=== PATIENT | female | born 1930 | race Caucasian/White ===

== ENCOUNTER 2016-08-09 10:39 | Observation (INO) | payer OTHER, MEDICARE ==
[~2016-08-09] VITALS: Ht 162.6 cm; Wt 53.9 kg
[~2016-08-09 10:39] MED LIST: ALBU1AER9 INH; CALCTAB5 PO; MULT-506 PO
--- NOTE | 2016-08-09 11:45 | DIAGNOSTIC IMAGING REPORT ---
SINGLE VIEW CHEST CLINICAL HISTORY: Dyspnea. Productive cough. FINDINGS: An AP, portable, upright chest radiograph is compared to study dated 10/21/2014 and correlated with chest CT dated 10/29/2014. The examination is degraded by portable technique and patient rotation. The heart is top normal for projection. There is atherosclerotic calcification of the thoracic aorta. Enlargement of the central pulmonary vessels suggests pulmonary artery hypertension. There is biapical scarring and emphysema. Scarring and cystic change at the right lung base is similar to previous. There is no airspace consolidation typical for pneumonia or pleural effusion. No pneumothorax is seen. The skeletal structures are osteopenic. The bony thorax is grossly intact. IMPRESSION: Emphysema and chronic parenchymal changes as above. No acute cardiopulmonary abnormality is identified. Electronically signed by: Marc Rinaldi M.D. 08/09/2016 11:44 AM Dictated Date/Time: 08/09/2016 11:42 AM
[2016-08-09 11:55] LABS: HEMATOCRIT 41.5 % (37-47); MEAN CELL VOLUME 93.5 fL (80-100); MEAN CORPUSCULAR HEMOGLOBIN 31.8 pg (25-34); MEAN PLATELET VOLUME 10.3 fL (7.4-10.4); PLATELET COUNT 208 K/uL (130-400); RED BLOOD COUNT 4.44 M/uL (4.2-5.4); WHITE BLOOD COUNT 5.67 K/uL (4.8-10.8)
[2016-08-09 12:04] LABS: PARTIAL THROMBOPLASTIN RATIO 1.2; PROTHROMBIN TIME (PATIENT) 10.5 SECONDS (9.0-12.0)
[2016-08-09 12:13] LABS: BUN/CREATININE RATIO 21.5 (10-20); CALCIUM 9.9 mg/dl (8.5-10.1); CREATININE 1.1 mg/dl (0.60-1.20); POTASSIUM 4.5 mmol/L (3.5-5.1)
[2016-08-09 12:15] LABS: ALB/GLOB RATIO 0.8 (0.9-2)
[2016-08-09] MEDS ORDERED: ALBUT/IPRATROP 3MG/0.5MG NEB 3 ML VIAL INH STA (12:15)
[2016-08-09 12:18] LABS: BASO % 0.4 %; BASO ABS # 0.02 K/uL (0-0.2); COMPLETE YES; EOS % 5.6 %; LYMPH % 24.3 %; LYMPH ABS # 1.38 K/uL (1.2-3.4); MONO % 9.9 %; NEUT % 59.8 %
[2016-08-09] MEDS ORDERED: ASCO10003 PO (12:34)
[2016-08-09] MEDS ORDERED: IBUP1CAP9 PO (14:52)
[2016-08-09] MEDS ORDERED: ONDANSETRON INJ 2 MG/ML 2 ML VIAL IV PRN (15:15)
[2016-08-09] MEDS ORDERED: ACETAMINOPHEN 325 MG TAB PO PRN (15:15)
--- NOTE | 2016-08-09 15:56 | History and Physical ---
History & Physical Date of Service Aug 09, 2016. History & Physical ADDENDUM: This is an 85 year old female with PMH of CKD stage 3, osteoporosis, recurrent sinusitis, presents with worsening dyspnea on exertion; states that this began a few days ago; and the breathing is worse with activity - she states she gets short of breath going up stairs and doing her activities of daily living; states she was diagnosed with COPD - though she never smoked; states that her mother smoked when patient was a child and her has a smoking history. Patient presented here, and vitals and labwork looked okay; CXR was performed showing hyperinflated lungs; emphysematous changes. She is resting comfortably during examination. ER staff ambulated patient in the hallways and she become hypoxic in the upper 80s. VITALS: Last Vital Signs Documentation Date Time Temp Pulse Resp B/P Pulse Ox O2 Delivery O2 Flow Rate FiO2 08/09/16 14:59 70 16 147/85 95 Room Air 08/09/16 10:41 36.6 GEN: no acute distress, +thin HEENT: dry mucous membranes CVS: +S1, S2, RRR LUNGS: end expiratory wheezing diffusely, decreased breath sounds ABD: soft, NT/ND EXT: no swelling/edema Acute COPD exacerbation Possible Viral Bronchitis patient with presumed COPD should have PFTs as outpatient for now, continue nebulizers PO steroid taper started on [id number]-nydia monitor for hypoxia, may need two step prior to discharge very eager to go home; but agreeable to stay overnight
[2016-08-09] MEDS ORDERED: AZITHROMYCIN 250 MG TAB PO ONE (16:00)
[2016-08-09] MEDS ORDERED: IV FLUIDS COMPLETED PRN (16:00)
[2016-08-09 16:15] VITALS: BP 121/75; PULSE 73; TEMP 36.5; O2SAT 93; Ht 162.6 cm; Wt 53.9 kg
[2016-08-09 16:24] LABS: INFLUENZA A PCR Neg for Influ A (NEG); INFLUENZA B PCR Neg for Influ B (NEG)
--- NOTE | 2016-08-09 16:43 | History and Physical ---
History & Physical Date & Time of Service: Aug 09, 2016 at 15:06 Chief Complaint: Trouble Breathing Primary Care Physician: Nhan Montoya MD History of Present Illness Source: patient, clinic records This is an 85 year old female with PMH of COPD, GERD, and other problems listed below who presents to the ED with worsening KELLY. Patient states she was dx with COPD when she was treated for acute bronchitis in Feb 2016 but never had PFT' s. Prior to that she had an episode of bronchitis in Spring 2015 and reports having pneumonia twice prior to that. She states at baseline she has KELLY with walking uphill which worsened from baseline x past 3 days. She states usually she can tolerate the KELLY but in past few days had to stop and rest which resolves her dyspnea. She has been using her rescue inhaler twice per day which is more than usual. She reports chronic dry cough but for past 3 days has been producing sputum. She notes associated fatigue and rhinorrhea. Pt notes chronic sinus issues. but no current sinus pressure/ ELDRIDGE. Pt has chronic cramping in bilateral legs/ feet. Pt lives alone and is usually active with cooking/ cleaning/ gardening. She denies fever, chills, chest pain, palpitations, abdominal pain, N/V/D, urinary change, orthopnea, edema, weight gain, diffuse myalgias. Pt denies sick contact, recent hospitalization, travel, or surgery. She denies h/o cardiac disorder. She does not recall having echo or stress test in the past. In the ER patient was hypoxic to 88% on RA with ambulation. She will be admitted for further evaluation and treatment. Past Medical/Surgical History Medical Problems: (1) Arthritis Status: Chronic (2) CKD (chronic kidney disease), stage III Status: Chronic (3) COPD (chronic obstructive pulmonary disease) Status: Chronic (4) GERD (gastroesophageal reflux disease) Status: Chronic (5) Osteoporosis Status: Chronic (6) Raynauds syndrome Status: Chronic (7) Sjoegren syndrome Status: Chronic Surgical Problems: (1) H/O inguinal hernia repair Status: Chronic Family History Cancer FH: heart disease FHx: lung disease Social History Smoking Status: Never Smoker Alcohol Use: none Drug Use: none Housing status: lives alone Occupational Status: other Multi-Drug Resistant Organisms History of MDRO: No Allergies Coded Allergies: Lidocaine (Verified Allergy, Unknown, UNKNOWN, 08/09/16) Home Medications Scheduled Ascorbic Acid (Vitamin C), 1,000 MG PO DAILY Multivitamin (Multivitamin), 1 TAB PO DAILY Scheduled PRN Albuterol (Proair Hfa), 2 PUFFS INH QID PRN for SOB/Wheezing Ibuprofen (Ibuprofen), 600 MG PO DAILY PRN for Pain Review of Systems Ten point review of systems performed with pertinent positives and negatives noted in HPI. Physical Exam Vital Signs Date Time Temp Pulse Resp B/P Pulse Ox O2 Delivery O2 Flow Rate FiO2 08/09/16 14:59 70 16 147/85 95 Room Air 08/09/16 14:16 88 Room Air 08/09/16 14:00 69 20 146/67 96 Room Air 08/09/16 12:42 66 20 140/82 96 Room Air 08/09/16 11:31 88 20 149/82 97 Room Air 08/09/16 11:08 95 Room Air 08/09/16 11:08 95 Room Air 08/09/16 10:41 36.6 76 22 133/78 94 Room Air General Appearance: no apparent distress, + thin, + pertinent finding ( pleasant alert 85 year old female, grandson and his fiance at bedside) Head: normocephalic, atraumatic Eyes: normal inspection, PERRL, EOMI, sclerae normal ENT: hearing grossly normal, pharynx normal Neck: supple, no JVD, trachea midline Respiratory/Chest: no respiratory distress, no accessory muscle use, + decreased breath sounds, + pertinent finding (no wheezing, crackles, rhonchi) Cardiovascular: regular rate, rhythm, no murmur, normal peripheral pulses Abdomen/GI: normal bowel sounds, non tender, soft Extremities/Musculoskelatal: normal inspection, no calf tenderness, no pedal edema Neurologic/Psych: alert, normal mood/affect, oriented x 3, + pertinent finding (grossly nonfocal) Skin: normal color, warm/dry Diagnostics Laboratory Results Results Past 24 Hours Test 08/09/16 11:30 08/09/16 11:40 08/09/16 13:17 08/09/16 14:35 Range/Units White Blood Count 5.67 4.8-10.8 K/uL Red Blood Count 4.44 4.2-5.4 M/uL Hemoglobin 14.1 12.0-16.0 g/dL Hematocrit 41.5 37-47 % Mean Corpuscular Volume 93.5 80-100 fL Mean Corpuscular Hemoglobin 31.8 25-34 pg Mean Corpuscular Hemoglobin Concent 34.0 32-36 g/dl Platelet Count 208 130-400 K/uL Mean Platelet Volume 10.3 7.4-10.4 fL Neutrophils (%) (Auto) 59.8 % Lymphocytes (%) (Auto) 24.3 % Monocytes (%) (Auto) 9.9 % Eosinophils (%) (Auto) 5.6 % Basophils (%) (Auto) 0.4 % Neutrophils # (Auto) 3.39 1.4-6.5 K/uL Lymphocytes # (Auto) 1.38 1.2-3.4 K/uL Monocytes # (Auto) 0.56 0.11-0.59 K/uL Eosinophils # (Auto) 0.32 0-0.5 K/uL Basophils # (Auto) 0.02 0-0.2 K/uL RDW Standard Deviation 43.3 36.4-46.3 fL RDW Coefficient of Variation 12.6 11.5-14.5 % Immature Granulocyte % (Auto) 0.0 % Immature Granulocyte # (Auto) 0.00 0.00-0.02 K/uL Prothrombin Time 10.5 9.0-12.0 SECONDS Prothromb Time International Ratio 1.0 0.9-1.1 Activated Partial Thromboplast Time 31.0 21.0-31.0 SECONDS Partial Thromboplastin Ratio 1.2 Sodium Level 136 136-145 mmol/L Potassium Level 4.5 3.5-5.1 mmol/L Chloride Level 100 98-107 mmol/L Carbon Dioxide Level 30 21-32 mmol/L Anion Gap 6.0 3-11 mmol/L Blood Urea Nitrogen 24 7-18 mg/dl Creatinine 1.10 0.60-1.20 mg/dl Est Creatinine Clear Calc Drug Dose 33.0 ml/min Estimated GFR () 53.8 Estimated GFR (Non- 46.4 BUN/Creatinine Ratio 21.5 10-20 Random Glucose 72 70-99 mg/dl Calcium Level 9.9 8.5-10.1 mg/dl Total Bilirubin 0.5 0.2-1 mg/dl Aspartate Amino Transf (AST/SGOT) 27 15-37 U/L Alanine Aminotransferase (ALT/SGPT) 24 12-78 U/L Alkaline Phosphatase 70 45-117 U/L Total Protein 8.2 6.4-8.2 gm/dl Albumin 3.7 3.4-5.0 gm/dl Globulin 4.5 2.5-4.0 gm/dl Albumin/Globulin Ratio 0.8 0.9-2 Bedside Troponin I 0.000 0.000 0-0.045 ng/ml Diagnostic Radiology SINGLE VIEW CHEST CLINICAL HISTORY: Dyspnea. Productive cough. FINDINGS: An AP, portable, upright chest radiograph is compared to study dated 10/21/2014 and correlated with chest CT dated 10/29/2014. The examination is degraded by portable technique and patient rotation. The heart is top normal for projection. There is atherosclerotic calcification of the thoracic aorta. Enlargement of the central pulmonary vessels suggests pulmonary artery hypertension. There is biapical scarring and emphysema. Scarring and cystic change at the right lung base is similar to previous. There is no airspace consolidation typical for pneumonia or pleural effusion. No pneumothorax is seen. The skeletal structures are osteopenic. The bony thorax is grossly intact. IMPRESSION: Emphysema and chronic parenchymal changes as above. No acute cardiopulmonary abnormality is identified. EKG NSR< 70 bpm, no ST or T wave abnormality Impression Assessment and Plan ACUTE EXACERBATION OF COPD with HYPOXIA Likely due to acute bronchitis CXR- no infiltrate; + emphysematous change Check influenza PCR- negative Will treat with azithromycin, PO prednisone, Duonebs Check echo to r/o valvular disease Was hypoxic while ambulating in ER; now saturating in 90s on RA Will need 2 step prior to discharge Recommend PFT's as an outpatient CKD STAGE III Creat is at baseline Monitor renal function Avoid nephrotoxins DVT PROPHYLAXIS Heparin SQ CODE STATUS Full code per my discussion with the patient. Pt states she would not want prolonged life support. Patient seen in collaboration with Dr. Johnson. Please see his addendum. VTE Prophylaxis VTE Risk Assessment Done? Y/N: Yes Risk Level: Moderate
--- NOTE | 2016-08-09 17:52 | EMERGENCY ROOM VISIT NOTE ---
History Report prepared by Kelly: Keith Benton Under the Supervision of: Dr. Ha Tipton M.D. First contact with patient: 11:57 Chief Complaint: RESPIRATORY PROBLEMS Stated Complaint: TROUBLE BREATHING Nursing Triage Summary: Patient reports history of COPD and states she always feels short of breath but it has worsened over the past few days, patient also having productive cough of clear sputum. History of Present Illness The patient is a 85 year old female who presents to the Emergency Room with complaints of worsened shortness of breath starting about 3 days ago. She has chronic shortness of breath. She has a history of pneumonia and bronchitis. She was diagnosed with COPD in February 2016. Her difficulty breathing has worsened. She has been using ProAir and Albuterol inhalers with some relief. She has symptom are relieved with rest. She has worsening symptoms with walking from room to room. She currently denies any pain or difficulty breathing. She also reports a chronic cough with clear phlegm which is unchanged. She also notes a runny nose. She has chronic sinus problems which have not changed. The patient denies fevers, chest pain, vomiting, lower extremity pain/swelling, or any other complaints. She denies any personal history of heart disease. Her step -brother had heart disease. As per family, the patient has a wood furnace in her basement. She sits down near the furnace to catch her breath. The smoke builds up in the room due to poor ventilation. The patient does have a carbon monoxide monitor in her house. Source of History: patient, family Onset: 3 days ago Position: other (global) Symptom Intensity: No pain Quality: other (shortness of breath) Timing: other (worsened) Modifying Factors (Worsening): other (walking) Modifying Factors (Relieving): rest, other (ProAir and Albuterol inhalers with some relief) Associated Symptoms: + cough, No chest pain, No fevers, No vomiting Review of Systems See HPI for pertinent positives & negatives. A total of 10 systems reviewed and were otherwise negative. Past Medical & Surgical Medical Problems: (1) Arthritis (2) CKD (chronic kidney disease), stage III (3) COPD (chronic obstructive pulmonary disease) (4) GERD (gastroesophageal reflux disease) (5) Hypoxia (6) Hypoxia (7) Osteoporosis (8) Raynauds syndrome (9) Sjoegren syndrome (10) SOB (shortness of breath) Surgical Problems: (1) H/O inguinal hernia repair Family History Cancer FH: heart disease FHx: lung disease Social History Smoking Status: Never Smoker Marital Status: Housing Status: lives with family Occupation Status: other Current/Historical Medications Scheduled Ascorbic Acid (Vitamin C), 1,000 MG PO DAILY Multivitamin (Multivitamin), 1 TAB PO DAILY Scheduled PRN Albuterol (Proair Hfa), 2 PUFFS INH QID PRN for SOB/Wheezing Ibuprofen (Ibuprofen), 600 MG PO DAILY PRN for Pain Allergies Coded Allergies: Lidocaine (Verified Allergy, Unknown, UNKNOWN, 08/09/16) Physical Exam Vital Signs Date Time Temp Pulse Resp B/P Pulse Ox O2 Delivery O2 Flow Rate FiO2 08/09/16 14:59 70 16 147/85 95 Room Air 08/09/16 14:16 88 Room Air 08/09/16 14:00 69 20 146/67 96 Room Air 08/09/16 12:42 66 20 140/82 96 Room Air 08/09/16 11:31 88 20 149/82 97 Room Air 08/09/16 11:08 95 Room Air 08/09/16 11:08 95 Room Air 08/09/16 10:41 36.6 76 22 133/78 94 Room Air Physical Exam Constitutional: Vital signs reviewed. Eyes: Pupils are equal round reactive to light. Conjunctiva are noninjected. ENT: Pharynx is clear without erythema or exudate. Mucous membranes are moist. Neck supple without meningeal signs. Respiratory: Scattered wheezing bilaterally. Breath sounds are equal bilaterally. Cardiovascular: Regular rate and rhythm. No rubs or gallops. GI: Soft, nondistended and nontender. Bowel sounds are present. Musculoskeletal: No peripheral edema. No lower extremity tenderness. Integumentary: No cyanosis. Neurological: The patient is awake and alert. No focal deficits. Psychiatric: Normal affect. Medical Decision & Procedures ER Provider Diagnostic Interpretation: X-ray results as stated below per interpretation by me and the radiologist: SINGLE VIEW CHEST CLINICAL HISTORY: Dyspnea. Productive cough. FINDINGS: An AP, portable, upright chest radiograph is compared to study dated 10/21/2014 and correlated with chest CT dated 10/29/2014. The examination is degraded by portable technique and patient rotation. The heart is top normal for projection. There is atherosclerotic calcification of the thoracic aorta. Enlargement of the central pulmonary vessels suggests pulmonary artery hypertension. There is biapical scarring and emphysema. Scarring and cystic change at the right lung base is similar to previous. There is no airspace consolidation typical for pneumonia or pleural effusion. No pneumothorax is seen. The skeletal structures are osteopenic. The bony thorax is grossly intact. IMPRESSION: Emphysema and chronic parenchymal changes as above. No acute cardiopulmonary abnormality is identified. Electronically signed by: Marc Rinaldi M.D. 08/09/2016 11:44 AM Dictated Date/Time: 08/09/2016 11:42 AM Laboratory Results 08/09/16 11:30 Red Blood Count 4.44, Mean Corpuscular Volume 93.5, Mean Corpuscular Hemoglobin 31.8, Mean Corpuscular Hemoglobin Concent 34.0, Mean Platelet Volume 10.3, Neutrophils (%) (Auto) 59.8, Lymphocytes (%) (Auto) 24.3, Monocytes (%) (Auto) 9.9, Eosinophils (%) (Auto) 5.6, Basophils (%) (Auto) 0.4, Neutrophils # (Auto) 3.39, Lymphocytes # (Auto) 1.38, Monocytes # (Auto) 0.56, Eosinophils # (Auto) 0.32, Basophils # (Auto) 0.02 08/09/16 11:30 Test 08/09/16 11:30 08/09/16 13:17 08/09/16 14:35 White Blood Count 5.67 K/uL (4.8-10.8) Red Blood Count 4.44 M/uL (4.2-5.4) Hemoglobin 14.1 g/dL (12.0-16.0) Hematocrit 41.5 % (37-47) Mean Corpuscular Volume 93.5 fL (80-100) Mean Corpuscular Hemoglobin 31.8 pg (25-34) Mean Corpuscular Hemoglobin Concent 34.0 g/dl (32-36) Platelet Count 208 K/uL (130-400) Mean Platelet Volume 10.3 fL (7.4-10.4) Neutrophils (%) (Auto) 59.8 % Lymphocytes (%) (Auto) 24.3 % Monocytes (%) (Auto) 9.9 % Eosinophils (%) (Auto) 5.6 % Basophils (%) (Auto) 0.4 % Neutrophils # (Auto) 3.39 K/uL (1.4-6.5) Lymphocytes # (Auto) 1.38 K/uL (1.2-3.4) Monocytes # (Auto) 0.56 K/uL (0.11-0.59) Eosinophils # (Auto) 0.32 K/uL (0-0.5) Basophils # (Auto) 0.02 K/uL (0-0.2) RDW Standard Deviation 43.3 fL (36.4-46.3) RDW Coefficient of Variation 12.6 % (11.5-14.5) Immature Granulocyte % (Auto) 0.0 % Immature Granulocyte # (Auto) 0.00 K/uL (0.00-0.02) Prothrombin Time 10.5 SECONDS (9.0-12.0) Prothromb Time International Ratio 1.0 (0.9-1.1) Activated Partial Thromboplast Time 31.0 SECONDS (21.0-31.0) Partial Thromboplastin Ratio 1.2 Anion Gap 6.0 mmol/L (3-11) Est Creatinine Clear Calc Drug Dose 33.0 ml/min Estimated GFR () 53.8 Estimated GFR (Non- 46.4 BUN/Creatinine Ratio 21.5 (10-20) Calcium Level 9.9 mg/dl (8.5-10.1) Total Bilirubin 0.5 mg/dl (0.2-1) Aspartate Amino Transf (AST/SGOT) 27 U/L (15-37) Alanine Aminotransferase (ALT/SGPT) 24 U/L (12-78) Alkaline Phosphatase 70 U/L (45-117) Total Protein 8.2 gm/dl (6.4-8.2) Albumin 3.7 gm/dl (3.4-5.0) Globulin 4.5 gm/dl (2.5-4.0) Albumin/Globulin Ratio 0.8 (0.9-2) Bedside Troponin I 0.000 ng/ml (0-0.045) Influenza Type A (RT-PCR) Neg for Influ A (NEG) Influenza Type B (RT-PCR) Neg for Influ B (NEG) Laboratory results as reviewed by me. Medications Administered Medications (Trade) Dose Ordered Sig/Piter Route Start Time Stop Time Status Last Admin Dose Admin Albuterol/ Ipratropium (Duoneb) 3 ml NOW STAT INH 08/09/16 12:15 08/09/16 12:16 DC 08/09/16 12:40 3 ML ECG Indication: SOB/dyspnea Rate (beats per minute): 70 Rhythm: normal sinus Findings: no acute ischemic change, no ectopy ED Course 1157: The patient was evaluated in room B04B. A complete history and physical exam was performed. 1215: DuoNeb 3 ml INH 1300: The patient performed an ambulatory trial and became short of breath. Her pulse ox dropped to 88% on room air. She went back up to 92% with rest. She denies any chest pain. 1416: She will be hospitalized due to a drop in ambulatory pulse ox. The patient currently denies any symptoms. I spoke with Tania Barrera PA-C of the [facility]. The patient will be evaluated for further management and care. Medical Decision This is an 85-year-old female presents with exertional dyspnea. Differential diagnosis includes COPD exacerbation, pneumonia, bronchitis, coronary artery disease, CHF, anemia. I did perform a limited focused review of portions of the patient's old chart on the electronic medical record. The patient has had no recent pertinent visits to this hospital. I did evaluate the patient as noted above. IV access was established. The patient was placed on a continuous quality assurance monitor body. I did treat the patient with a DuoNeb. I did order and personally review the patient's 12-lead EKG and chest x-ray as described above. I did order and review the patient's blood work as noted in the electronic medical record. She is not anemic. Troponin is negative 2. I did ambulate the patient. Her pulse ox dropped to 88% with mild ambulation. Due to her hypoxemia I did recommend inpatient workup. I did discuss the case with the hospitalist and employment case manager. Consults Time Called: [phone] Consulting Physician: Tania Barrera PA-C of the [facility] Returned Call: [phone] I spoke with Tania Barrera PA-C of the [facility]. Impression Primary Impression: Dyspnea on exertion Additional Impression: Hypoxia Scribe Attestation The scribe's documentation has been prepared under my direct and personally reviewed by me in its entirety. I confirm that the note above accurately reflects all work, treatment, procedures, and medical decision making performed by me. Departure Information Dispostion Being Evaluated By Hospitalist Referrals Nhan Montoya MD (PCP) Patient Instructions My [facility] Problem Qualifiers
[2016-08-09] MEDS: HEPARIN SOD 5000 UNIT/0.5 ML CARP SQ SCH (21:40)
[2016-08-09 23:24] VITALS: PULSE 83; O2SAT 93
[2016-08-09] MEDS: ALBUT/IPRATROP 3MG/0.5MG NEB 3 ML VIAL INH SCH (23:24)
[2016-08-10 01:01] VITALS: BP 115/68; PULSE 84; TEMP 36.5; O2SAT 91
[2016-08-10] MEDS: HEPARIN SOD 5000 UNIT/0.5 ML CARP SQ SCH ×2 (06:00→13:55)
[2016-08-10 07:05] VITALS: BP 117/69; PULSE 75; TEMP 36.6; O2SAT 93
[2016-08-10 07:47] LABS: HEMATOCRIT 38.9 % (37-47); MEAN CELL VOLUME 90.3 fL (80-100); MEAN CORPUSCULAR HEMOGLOBIN 30.9 pg (25-34); MEAN CORPUSCULAR HGB CONC 34.2 g/dl (32-36); MEAN PLATELET VOLUME 10.3 fL (7.4-10.4); PLATELET COUNT 208 K/uL (130-400); RED BLOOD COUNT 4.31 M/uL (4.2-5.4); WHITE BLOOD COUNT 5.23 K/uL (4.8-10.8)
[2016-08-10] MEDS ORDERED: ASCORBIC ACID 500 MG TAB PO SCH (08:00)
[2016-08-10] MEDS ORDERED: AZITHROMYCIN 250 MG TAB PO SCH (08:00)
[2016-08-10] MEDS ORDERED: MULTIVITAMIN TAB PO SCH (08:00)
[2016-08-10] MEDS: ALBUT/IPRATROP 3MG/0.5MG NEB 3 ML VIAL INH SCH ×4 (08:07→19:29)
[2016-08-10 08:08] VITALS: PULSE 79; O2SAT 93
[2016-08-10 08:15] LABS: BUN/CREATININE RATIO 25.6 (10-20); CALCIUM 9.7 mg/dl (8.5-10.1); CREATININE 1.1 mg/dl (0.60-1.20); MAGNESIUM 2.2 mg/dl (1.8-2.4); POTASSIUM 4.3 mmol/L (3.5-5.1)
[2016-08-10 11:30] VITALS: PULSE 78; O2SAT 92
[2016-08-10 14:30] VITALS: BP 107/61; PULSE 98; TEMP 36.6; O2SAT 93
--- NOTE | 2016-08-10 16:31 | ECHOCARDIOGRAM REPORT ---
*NOTICE TO RECEIVING LIBERTARIAN AGENCY This information is strictly Confidential and protected under [place] law. [place] law prohibits you from making any further disclosure of this information unless further disclosure is expressly permitted by the written consent of the person to whom it pertains or is authorized by law. A general authorization for the release of medical or other information is not sufficient for this purpose. Hospital accepts no responsibility if the information is made available to any other person, INCLUDING THE PATIENT. Interpretation Summary * Name: SHARA ARAGON Study Date: 08/10/2016 03:12 PM BP: 115/68 mmHg * Patient Location: [facility] HR: 84 * : 1930 (M/d/yyyy) Gender: Female Height: 64 in * Age: 85 yrs Ethnicity: CA Weight: 118 lb * Ordering Physician: Janny Peacock * Referring Physician: Nhan Montoya * Performed By: Katiuska Chun * * Reason For Study: KELLY * BSA: 1.6 m2 * The study was technically adequate. * There is no comparison study available. * -- Conclusions -- * Ejection Fraction = >70 %. * Grade I diastolic dysfunction, (abnormal relaxation pattern). * Aortic valve sclerosis mild, without significant aortic valvular stenosis. * There is mild tricuspid regurgitation. * Doppler findings do not suggest pulmonary hypertension. Procedure Details * A complete two-dimensional transthoracic echocardiogram was performed (2D, M-mode, Doppler and color flow Doppler). * There were technical limitations due to patient'sPoor acoustic windows secondary to severe lung disease. * Patient did not have an IV in for contrast Definity. Left Ventricle * The left ventricle is normal in size. * There is normal left ventricular wall thickness. * Ejection Fraction = >70 %. * The left ventricular wall motion is normal. Right Ventricle * The right ventricle is normal size. * The right ventricular systolic function is normal as assessed by tricuspid annular plane systolic excursion (TAPSE) (normal >1.5 cm). Atria * The left atrial size is normal. * Right atrial size is normal. * There is no evidence of atrial septal defect, but resolution does not allow assessment for a patent foramen ovale. Mitral Valve * There is mild mitral annular calcification. * There is no mitral valve stenosis. * Significant mitral regurgitation is absent. Tricuspid Valve * The tricuspid valve is normal. * There is no tricuspid stenosis. * There is mild tricuspid regurgitation. * Doppler findings do not suggest pulmonary hypertension. Aortic Valve * The aortic valve is trileaflet. * Aortic valve sclerosis mild, without significant aortic valvular stenosis. * Aortic stenosis is absent. * There is no significant aortic regurgitation. Pulmonic Valve * The pulmonary valve is inadequately visualized, but the Doppler data is adequate for interpretation. * There is no pulmonic valvular stenosis. * Trace pulmonic valvular regurgitation. Great Vessels * The aortic root and proximal ascending aorta are normal sized. Pericardium/Pleural * There is no pericardial effusion. Great Vessels * Normal inferior vena cava diameter and respiratory variation suggests normal central venous pressure. Left Ventricular Diastolic Function * Grade I diastolic dysfunction, (abnormal relaxation pattern). MMode 2D Measurements and Calculations IVSd 0.97 cm IVSs 1.4 cm LVIDd 2.8 cm LVIDs 1.6 cm LVPWd 0.73 cm LVPWs 1.1 cm IVS/LVPW 1.3 FS 44.2 % EDV(Teich) 30.2 ml ESV(Teich) 6.9 ml EF(Teich) 77.2 % EDV(cubed) 22.6 ml ESV(cubed) 3.9 ml EF(cubed) 82.6 % % IVS thick 41.2 % % LVPW thick 52.1 % LV mass(C)d 59.0 grams LV mass(C)dI 37.8 grams/m\S\2 LV mass(C)s 53.0 grams LV mass(C)sI 33.9 grams/m\S\2 CO(Teich) 1.8 l/min CI(Teich) 1.1 l/min/m\S\2 SV(Teich) 23.3 ml SI(Teich) 14.9 ml/m\S\2 CO(cubed) 1.4 l/min CI(cubed) 0.90 l/min/m\S\2 SV(cubed) 18.7 ml SI(cubed) 11.9 ml/m\S\2 ACS 1.2 cm LA dimension 2.4 cm asc Aorta Diam 2.9 cm LVOT diam 1.3 cm LVOT area 1.4 cm\S\2 LVAd ap4 17.1 cm\S\2 LVLd ap4 6.3 cm EDV(MOD-sp4) 38.0 ml LVAs ap4 7.2 cm\S\2 LVLs ap4 4.7 cm ESV(MOD-sp4) 9.0 ml EF(MOD-sp4) 76.3 % LVAd ap2 12.4 cm\S\2 LVLd ap2 5.7 cm EDV(MOD-sp2) 23.0 ml LVAs ap2 5.7 cm\S\2 LVLs ap2 4.4 cm ESV(MOD-sp2) 6.0 ml EF(MOD-sp2) 73.9 % CO(MOD-sp4) 2.2 l/min CI(MOD-sp4) 1.4 l/min/m\S\2 SV(MOD-sp4) 29.0 ml SI(MOD-sp4) 18.6 ml/m\S\2 CO(MOD-sp2) 1.3 l/min CI(MOD-sp2) 0.82 l/min/m\S\2 SV(MOD-sp2) 17.0 ml SI(MOD-sp2) 10.9 ml/m\S\2 Doppler Measurements and Calculations MV E max aura 71.7 cm/sec MV A max aura 85.6 cm/sec MV E/A 0.84 MV V2 max 85.1 cm/sec MV max PG 2.9 mmHg MV V2 mean 58.1 cm/sec MV mean PG 1.5 mmHg MV V2 VTI 25.9 cm MVA(VTI) 1.4 cm\S\2 MV dec time 0.36 sec Ao V2 max 153.8 cm/sec Ao max PG 9.5 mmHg Ao max PG (full) 3.9 mmHg MEHUL(V,A) 1.1 cm\S\2 MEHUL(V,D) 1.1 cm\S\2 LV V1 max PG 5.6 mmHg LV V1 mean PG 2.7 mmHg LV V1 max 118.2 cm/sec LV V1 mean 74.3 cm/sec LV V1 VTI 26.7 cm SV(LVOT) 37.4 ml SI(LVOT) 23.9 ml/m\S\2 PA V2 max 87.9 cm/sec PA max PG 3.1 mmHg PI end-d aura 105.7 cm/sec TR max aura 253.2 cm/sec
--- NOTE | 2016-08-10 17:27 | Progress Note ---
Medicine Progress Note Date & Time of Visit: Aug 10, 2016 at 17:09. 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 Pt said that yesterday they told her that she would be staying in the hospital overnight only she said that she would sign AMA if we intend to keep her for tonight she said that she is back to her baseline she denies any chest pain, palpitation, dizziness and sob Objective Last 8 Hrs Date Time Temp Pulse Resp B/P Pulse Ox O2 Delivery O2 Flow Rate FiO2 08/10/16 14:30 36.6 98 22 107/61 93 Room Air 08/10/16 11:30 78 16 92 Room Air 08/10/16 10:19 Room Air Physical Exam: General- no acute distress Head- atraumatic Eyes- PERRL, EOMI ENT- oropharynx clear Neck- supple, no JVD Lungs- No crackles, +mild wheezing, decrease breath sound Heart- regular rhythm; no murmur Abdomen- normal bowel sounds, soft Extremities- no pretibial edema, no calf tenderness Neuro- alert, oriented x 3; PERRL, EOMI; no facial palsy; no dysarthria Skin- warm & dry Laboratory Results: Last 24 Hours Test 08/10/16 07:00 White Blood Count 5.23 K/uL Red Blood Count 4.31 M/uL Hemoglobin 13.3 g/dL Hematocrit 38.9 % Mean Corpuscular Volume 90.3 fL Mean Corpuscular Hemoglobin 30.9 pg Mean Corpuscular Hemoglobin Concent 34.2 g/dl RDW Standard Deviation 41.4 fL RDW Coefficient of Variation 12.5 % Platelet Count 208 K/uL Mean Platelet Volume 10.3 fL Sodium Level 138 mmol/L Potassium Level 4.3 mmol/L Chloride Level 101 mmol/L Carbon Dioxide Level 30 mmol/L Anion Gap 7.0 mmol/L Blood Urea Nitrogen 28 mg/dl Creatinine 1.10 mg/dl Est Creatinine Clear Calc Drug Dose 33.0 ml/min Estimated GFR () 53.8 Estimated GFR (Non- 46.4 BUN/Creatinine Ratio 25.6 Random Glucose 91 mg/dl Calcium Level 9.7 mg/dl Magnesium Level 2.2 mg/dl Diagnostic Imaging: ECHO Interpretation Summary * Name: SHARA ARAGON Study Date: 08/10/2016 03:12 PM BP: 115/68 mmHg * Patient Location: [facility] HR: 84 * : 1930 (M/d/yyyy) Gender: Female Height: 64 in * Age: 85 yrs Ethnicity: [place] Weight: 118 lb * Ordering Physician: Janny Peacock * Referring Physician: Nhan Montoya * Performed By: Katiuska Chun * * Reason For Study: KELLY * BSA: 1.6 m2 * The study was technically adequate. * There is no comparison study available. * -- Conclusions -- * Ejection Fraction = >70 %. * Grade I diastolic dysfunction, (abnormal relaxation pattern). * Aortic valve sclerosis mild, without significant aortic valvular stenosis. * There is mild tricuspid regurgitation. * Doppler findings do not suggest pulmonary hypertension. Procedure Details * A complete two-dimensional transthoracic echocardiogram was performed (2D, M-mode, Doppler and color flow Doppler). * There were technical limitations due to patient'sPoor acoustic windows secondary to severe lung disease. * Patient did not have an IV in for contrast Definity. Left Ventricle * The left ventricle is normal in size. * There is normal left ventricular wall thickness. * Ejection Fraction = >70 %. * The left ventricular wall motion is normal. Right Ventricle * The right ventricle is normal size. * The right ventricular systolic function is normal as assessed by tricuspid annular plane systolic excursion (TAPSE) (normal >1.5 cm). Atria * The left atrial size is normal. * Right atrial size is normal. * There is no evidence of atrial septal defect, but resolution does not allow assessment for a patent foramen ovale. Mitral Valve * There is mild mitral annular calcification. * There is no mitral valve stenosis. * Significant mitral regurgitation is absent. Tricuspid Valve * The tricuspid valve is normal. * There is no tricuspid stenosis. * There is mild tricuspid regurgitation. * Doppler findings do not suggest pulmonary hypertension. Aortic Valve * The aortic valve is trileaflet. * Aortic valve sclerosis mild, without significant aortic valvular stenosis. * Aortic stenosis is absent. * There is no significant aortic regurgitation. Pulmonic Valve * The pulmonary valve is inadequately visualized, but the Doppler data is adequate for interpretation. * There is no pulmonic valvular stenosis. * Trace pulmonic valvular regurgitation. Great Vessels * The aortic root and proximal ascending aorta are normal sized. Pericardium/Pleural * There is no pericardial effusion. Great Vessels * Normal inferior vena cava diameter and respiratory variation suggests normal central venous pressure. Left Ventricular Diastolic Function * Grade I diastolic dysfunction, (abnormal relaxation pattern). Assessment & Plan Dyspnea Possible related to COPD exacerbation with hypoxia vs acute bronchitis CXR- showed emphysematous change with no infiltrate influenza PCR- negative Continue azithromycin, PO prednisone, Duonebs Saturated on RA at 92 to 93% will check oxygen saturation while ambulating Recommend PFT's as an outpatient Pt will sign out tonight if i don't discharge her consider overnight oximetry as an outpatient since pt refused to stay for the night ECHO showed Ejection Fraction = >70 %. * Grade I diastolic dysfunction, (abnormal relaxation pattern). * Aortic valve sclerosis mild, without significant aortic valvular stenosis. * There is mild tricuspid regurgitation. * Normal ventricle wall motion * Doppler findings do not suggest pulmonary hypertension. CKD STAGE III Creat is at baseline Monitor renal function Avoid nephrotoxins Stable DVT PROPHYLAXIS Heparin SQ CODE STATUS Full code Disposition Will discharge today Follow up with your pcp Need PFT as an outpatient Current Inpatient Medications: Current Inpatient Medications Medications (Trade) Dose Ordered Sig/Piter Route Start Time Stop Time Status Last Admin Dose Admin Albuterol/ Ipratropium (Duoneb) 3 ml QIDR INH 08/09/16 16:00 09/08/16 15:59 08/10/16 11:30 3 ML Prednisone (PredniSONE TAB) 40 mg DAILY PO 08/10/16 08:00 08/13/16 08:59 08/10/16 11:14 40 MG Heparin Sodium (Porcine) (Heparin Sq 5000 Unit/0.5ml) 5,000 unit Q8 SQ 08/09/16 22:00 09/08/16 21:59 Acetaminophen (Tylenol Tab) 650 mg Q4H PRN PO 08/09/16 15:15 09/08/16 15:14 Ondansetron HCl (Zofran Inj) 4 mg Q6H PRN IV 08/09/16 15:15 09/08/16 15:14 Multivitamins (Multivitamin Tab) 1 tab DAILY PO 08/10/16 08:00 09/09/16 08:59 08/10/16 08:32 1 TAB Ascorbic Acid (Vitamin C Tab) 1,000 mg DAILY PO 08/10/16 08:00 09/09/16 08:59 08/10/16 08:32 1,000 MG Miscellaneous (Iv Fluids Completed) 1 ea PRN PRN N/A 08/09/16 16:00 08/09/17 15:59 Azithromycin (Zithromax Tab) 250 mg QAM PO 08/10/16 08:00 08/17/16 08:59 08/10/16 08:32 250 MG
[2016-08-10] MEDS ORDERED: PRED10TA PO (18:22)
[2016-08-10] MEDS ORDERED: ZTHM250 PO (18:22)
--- NOTE | 2016-08-10 18:29 | Discharge Instructions ---
Discharge Instructions Admission Reason for Admission: Hypoxia, Sob Discharge Discharge Diagnosis / Problem: Dyspnea, CKD stage 3 Discharge Goals Goal(s): Decrease discomfort, Improve function, Improve disease control Activity Recommendations Activity Limitations: resume your previous activity (as tolerated) . Instructions / Follow-Up Instructions / Follow-Up Follow up with your Primary care physician dr. Montoya on 08/15 @ 11am Complete antibiotic course continue prednisone taper dose PFT as an outpatient (can be arrange by your physician) If shortness of breath reoccurs, please seek medical attention Current Hospital Diet Patient's current hospital diet: Regular Diet Discharge Diet Recommended Diet: Regular Diet Pending Studies Studies pending at discharge: no Medical Emergencies . Who to Call and When: Medical Emergencies: If at any time you feel your situation is an emergency, please call 911 immediately. . Non-Emergent Contact Non-Emergency issues call your: Primary Care Provider Call Non-Emergent contact if: you have any medication questions . . "Provider Documentation" section prepared by Jeanie Flores. VTE Core Measure Inpt VTE Proph given/why not?: Unfractionated heparin SQ
[2016-08-10 18:54] VITALS: BP 107/61; PULSE 98; TEMP 36.6; O2SAT 93
--- NOTE | 2016-08-16 07:34 | Discharge Summary ---
Discharge Summary Date of Service Aug 16, 2016. Discharge Summary Admission Date: Aug 09, 2016 at 15:03 Discharge Date: Aug 10, 2016 Discharge Disposition: Home Principal Diagnosis: SOB Secondary Diagnoses/Problems: Dyspnea CKD stage 3 Procedures: ECHO Interpretation Summary * Name: HSARA ARAGON Study Date: 08/10/2016 03:12 PM BP: 115/68 mmHg * Patient Location: [facility] HR: 84 * : 1930 (M/d/yyyy) Gender: Female Height: 64 in * Age: 85 yrs Ethnicity: [place] Weight: 118 lb * Ordering Physician: Janny Peacock * Referring Physician: Nhan Montoya * Performed By: Katiuska Chun * * Reason For Study: KELLY * BSA: 1.6 m2 * The study was technically adequate. * There is no comparison study available. * -- Conclusions -- * Ejection Fraction = >70 %. * Grade I diastolic dysfunction, (abnormal relaxation pattern). * Aortic valve sclerosis mild, without significant aortic valvular stenosis. * There is mild tricuspid regurgitation. * Doppler findings do not suggest pulmonary hypertension. Procedure Details * A complete two-dimensional transthoracic echocardiogram was performed (2D, M- mode, Doppler and color flow Doppler). * There were technical limitations due to patient'sPoor acoustic windows secondary to severe lung disease. * Patient did not have an IV in for contrast Definity. Left Ventricle * The left ventricle is normal in size. * There is normal left ventricular wall thickness. * Ejection Fraction = >70 %. * The left ventricular wall motion is normal. Right Ventricle * The right ventricle is normal size. * The right ventricular systolic function is normal as assessed by tricuspid annular plane systolic excursion (TAPSE) (normal >1.5 cm). Atria * The left atrial size is normal. * Right atrial size is normal. * There is no evidence of atrial septal defect, but resolution does not allow assessment for a patent foramen ovale. Mitral Valve * There is mild mitral annular calcification. * There is no mitral valve stenosis. * Significant mitral regurgitation is absent. Tricuspid Valve * The tricuspid valve is normal. * There is no tricuspid stenosis. * There is mild tricuspid regurgitation. * Doppler findings do not suggest pulmonary hypertension. Aortic Valve * The aortic valve is trileaflet. * Aortic valve sclerosis mild, without significant aortic valvular stenosis. * Aortic stenosis is absent. * There is no significant aortic regurgitation. Pulmonic Valve * The pulmonary valve is inadequately visualized, but the Doppler data is adequate for interpretation. Medication Reconciliation New Medications: Azithromycin (Azithromycin) 250 Mg Tab 250 MG PO QAM for 3 Days, #3 TAB Prednisone Tab (Prednisone) 10 Mg Tab 10 MG PO UD for 7 Days, TAB take 4 tab for 1 day, then 3 tab for 2 days, then 2 tab for 2 days, then 1 tab for 2 days and stop Continued Medications: Albuterol (Proair Hfa) Aers 2 PUFFS INH QID PRN for SOB/Wheezing Ascorbic Acid (Vitamin C) 1,000 Mg Tab 1000 MG PO DAILY Ibuprofen (Ibuprofen) 200 Mg Cap 600 MG PO DAILY PRN for Pain Multivitamin (Multivitamin) Tab 1 TAB PO DAILY, 0 Refills Admission Information HPI (per Admitting provider): This is an 85 year old female with PMH of COPD, GERD, and other problems listed below who presents to the ED with worsening KELLY. Patient states she was dx with COPD when she was treated for acute bronchitis in Feb 2016 but never had PFT' s. Prior to that she had an episode of bronchitis in Spring 2015 and reports having pneumonia twice prior to that. She states at baseline she has KELLY with walking uphill which worsened from baseline x past 3 days. She states usually she can tolerate the KELLY but in past few days had to stop and rest which resolves her dyspnea. She has been using her rescue inhaler twice per day which is more than usual. She reports chronic dry cough but for past 3 days has been producing sputum. She notes associated fatigue and rhinorrhea. Pt notes chronic sinus issues. but no current sinus pressure/ ELDRIDGE. Pt has chronic cramping in bilateral legs/ feet. Pt lives alone and is usually active with cooking/ cleaning/ gardening. She denies fever, chills, chest pain, palpitations, abdominal pain, N/V/D, urinary change, orthopnea, edema, weight gain, diffuse myalgias. Pt denies sick contact, recent hospitalization, travel, or surgery. She denies h/o cardiac disorder. She does not recall having echo or stress test in the past. In the ER patient was hypoxic to 88% on RA with ambulation. She will be admitted for further evaluation and treatment. Physical Exam (per Admitting): General Appearance: no apparent distress, + thin, + pertinent finding ( pleasant alert 85 year old female, grandson and his fiance at bedside) Head: normocephalic, atraumatic Eyes: normal inspection, PERRL, EOMI, sclerae normal ENT: hearing grossly normal, pharynx normal Neck: supple, no JVD, trachea midline Respiratory/Chest: no respiratory distress, no accessory muscle use, + decreased breath sounds, + pertinent finding (no wheezing, crackles, rhonchi) Cardiovascular: regular rate, rhythm, no murmur, normal peripheral pulses Abdomen/GI: normal bowel sounds, non tender, soft Extremities/Musculoskelatal: normal inspection, no calf tenderness, no pedal edema Neurologic/Psych: alert, normal mood/affect, oriented x 3, + pertinent finding (grossly nonfocal) Skin: normal color, warm/dry Hospital Course Dyspnea Possible related to COPD exacerbation with hypoxia vs acute bronchitis CXR- showed emphysematous change with no infiltrate influenza PCR- negative Continue azithromycin, PO prednisone, Duonebs Saturated on RA at 92 to 93% will check oxygen saturation while ambulating Recommend PFT's as an outpatient Pt will sign out tonight if i don't discharge her consider overnight oximetry as an outpatient since pt refused to stay for the night ECHO showed Ejection Fraction = >70 %. * Grade I diastolic dysfunction, (abnormal relaxation pattern). * Aortic valve sclerosis mild, without significant aortic valvular stenosis. * There is mild tricuspid regurgitation. * Normal ventricle wall motion * Doppler findings do not suggest pulmonary hypertension. CKD STAGE III Creat is at baseline Monitor renal function Avoid nephrotoxins Stable DVT PROPHYLAXIS Heparin SQ CODE STATUS Full code Disposition Will discharge today Follow up with your pcp Need PFT as an outpatient Total time spent on discharge = 35 minutes This includes examination of the patient, discharge planning, medication reconciliation, and communication with other providers. Discharge Instructions Discharge Instructions Admission Reason for Admission: Hypoxia, Sob Discharge Discharge Diagnosis / Problem: Dyspnea, CKD stage 3 Discharge Goals Goal(s): Decrease discomfort, Improve function, Improve disease control Activity Recommendations Activity Limitations: resume your previous activity (as tolerated) . Instructions / Follow-Up Instructions / Follow-Up Follow up with your Primary care physician dr. Montoya on 08/15 @ 11am Complete antibiotic course continue prednisone taper dose PFT as an outpatient (can be arrange by your physician) If shortness of breath reoccurs, please seek medical attention Current Hospital Diet Patient's current hospital diet: Regular Diet Discharge Diet Recommended Diet: Regular Diet Pending Studies Studies pending at discharge: no Medical Emergencies . Who to Call and When: Medical Emergencies: If at any time you feel your situation is an emergency, please call 911 immediately. . Non-Emergent Contact Non-Emergency issues call your: Primary Care Provider Call Non-Emergent contact if: you have any medication questions . . "Provider Documentation" section prepared by Jeanie Flores. VTE Core Measure Inpt VTE Proph given/why not?: Unfractionated heparin SQ Additional Copies To Nhan Montoya MD
== END 2016-08-10 19:47 | disposition home or self-care (01) ==
LOC: ENRESERVDT → ENRESERVTM → C.EDB 10:40 → C.MS4W 15:03
PROVIDERS: ADMIT Family Medicine; ATTEND Internal Medicine
DX: J44.1 Chronic obstructive pulmonary disease with (acute) exacerbation (principal); R06.00 Dyspnea, unspecified; N18.3 Chronic kidney disease, stage 3 (moderate); K21.9 Gastro-esophageal reflux disease without esophagitis; M81.0 Age-related osteoporosis without current pathological fracture; I73.00 Raynaud's syndrome without gangrene; Q87.1 Congenital malformation syndromes predominantly associated with short stature; Z83.3 Family history of diabetes mellitus; Z82.49 Family history of ischemic heart disease and other diseases of the circulatory system

== ENCOUNTER → 2017-01-24 | Outpatient (CLI) | payer OTHER, MEDICARE ==
[~2017-01-24] MED LIST changes: +ASCO10003 PO; -CALCTAB5 PO; +IBUP1CAP9 PO; +ZTHM250 PO
--- NOTE | 2017-01-28 18:48 | PULMONARY FUNCTION TEST ---
Spirometry shows a mild to moderate obstructive pattern. Repeat study done following bronchodilator showed no significant change in function.
== END | disposition home or self-care (01) ==
LOC: C.RC 10:17
PROVIDERS: ATTEND Specialist
DX: J44.9 Chronic obstructive pulmonary disease, unspecified (principal)

== ENCOUNTER → 2017-09-01 | Outpatient (CLI) | payer OTHER, MEDICARE ==
[~2017-09-01] MED LIST changes: +AZIT-57 PO; -ZTHM250 PO
[2017-09-06 09:17] LABS: QUANTIF MITOGEN-NIL 8.25 IU/ML; QUANTIFERON NEGATIVE (NEGATIVE); QUANTIFERON NIL 0.42 IU/ML
== END | disposition home or self-care (01) ==
LOC: C.LAB 10:35
PROVIDERS: ATTEND Specialist
DX: J44.9 Chronic obstructive pulmonary disease, unspecified (principal); J43.9 Emphysema, unspecified